=== PATIENT | male | born 2000 | race Caucasian/White ===

== ENCOUNTER 2019-02-21 00:23 | Observation (INO) | payer OTHER, SELFPAY ==
[2019-02-21 01:46] LABS: #Basophils 0.1 thou/uL (0.0-0.2); #Eosinphils 0.1 thou/uL (0.0-0.7); #Monocytes 1.3 thou/uL (0.11-0.59); #Neutrophils 11.6 thou/uL (1.40-6.50); %Basophils 0.4 % (0.0-1.0); %Eosinophils 0.6 % (0.0-10.0); %Lymphocytes 13.3 % (28.0-48.0); %Monocytes 8.8 % (0.0-4.0); %Neutrophils 76.9 % (31.0-61.0); Hemoglobin 15.6 g/dL (14.0-18.0); Mean Corpuscular HGB CONC 33.5 g/dL (32.0-36.0); Mean Corpuscular Hemoglobin 32.5 pg (25.0-35.0); Platelet Count 261 thou/uL (130-400); RBC Distribution Width 11.6 % (11.5-14.5); Red Blood Cell (RBC) Count 4.79 mill/uL (4.00-5.20)
[2019-02-21 02:02] LABS: Amphetamine Not Detected (NotDetected); Barbiturates Screen Not Detected (NotDetected); Benzodiazepine Screen Not Detected (NotDetected); Cocaine Metabolite Screen Not Detected (NotDetected); Medtox Control Line Valid? VALID (VALID); Medtox Reader # READER 4; Methadone Not Detected (NotDetected); Methamphetamine Not Detected (NotDetected); Opiate Screen Detected (NotDetected); Oxycodone Screen Not Detected (NotDetected); Phencyclidine (PCP) Not Detected (NotDetected); THC/Cannabinoid Screen Detected (NotDetected); Tricyclic Screen Not Detected (NotDetected)
[2019-02-21 02:07] LABS: Acetaminophen Less than 6.0 mcg/mL (10.0-30.0); Alcohol Less than 10 mg/dL (Less than 10); Salicylate Less than 8.0 mg/dL (15.0-30.0)
[2019-02-21 02:08] LABS: ALT (SGPT) 14 U/L (8-55); AST (SGOT) 19 U/L (5-34); Albumin 4.5 g/dL (3.5-5.0); Alkaline Phosphatase 79 U/L (Less than 750); Anion Gap 15 mmol/L (10-20); BUN (Urea Nitrogen) 18 mg/dL (8.9-20.6); Bilirubin, Total 0.5 mg/dL (0.2-1.2); Calc. Creatinine Clearance 0 mL/min (70-130); Calcium 9.7 mg/dL (7.8-10.44); Carbon Dioxide 25 mmol/L (22-29); Chloride 101 mmol/L (98-107); Estimated GFR-MDRD 71; Globulin 2.6 g/dL (2.4-3.5); Glucose 132 mg/dL (70-105); Potassium 3.6 mmol/L (3.5-5.1); Protein, Total 7.1 g/dL (6.0-8.3); Sodium 137 mmol/L (136-145)
[2019-02-21] MEDS ORDERED: Mag-Al 1200 mg/1200 mg/30 ML UDCUP ONE (02:46)
[2019-02-21] MEDS ORDERED: Lidocaine Viscous Sol 2% 15 ml UD Cup ONE (02:46)
[2019-02-21 02:54] LABS: Magnesium 2.4 mg/dL (1.7-2.2)
[2019-02-21 03:00] LABS: Bilirubin Negative (Negative); Blood, Urine Negative (Negative); Clarity CLEAR (Clear); Glucose, Urine (Dipstick) Negative (Negative); Leukocyte Negative (Negative); Nitrite Negative (Negative); Protein, Urine (Dipstick) Negative (Neg-Trace); Specific Gravity, Urine 1.014 (1.002-1.036); Urobilinogen 0.2 mg/dL (0.2-1.0)
[2019-02-21] MEDS ORDERED: Lorazepam 2 MG/ML VIAL ONE ×2 (03:14→12:08)
[2019-02-21 06:02] LABS: Troponin I 0.011 ng/mL (< 0.028)
--- NOTE | 2019-02-21 08:11 | CT ---
CTA CHEST AND ABDOMEN UTILIZING AORTIC DISSECTION PROTOCOL AND 3D REFORMATTED IMAGING: INDICATIONS: Severe chest pain, shortness of breath, hypoxia, and tachycardia. COMPARISON: None. FINDINGS: No hemodynamically significant stenosis, occlusion, or aneurysmal formation seen involving the aorta. The celiac, SMA, renal arteries, and AMINATA are widely patent. The iliac bifurcations are widely holliday nt. No definite central pulmonary embolus is evident. The heart and great vessel origins appear within n ormal limits. The lungs are clear. No pleural effusion or pneumothorax is evident. No enlarged lymph nodes are evident. No focal hepatic lesion is evident. The spleen is at the upper limits of normal for size, measuring 12.6 cm. The pancreas, adrenal glands, and kidneys are normal appearing. There are bilateral extrar enal pelves. No free fluid or enlarged lymph nodes are evident. There is a normal retrocecal appendix. No acute osseous abnormality is evident. IMPRESSION: No acute abnormality. POS: [facility]
--- NOTE | 2019-02-21 08:13 | RAD ---
SINGLE VIEW CHEST: Date: 02/21/19 COMPARISON: None. HISTORY: Chest pain. FINDINGS: Single view of the chest shows a normal sized cardiomediastinal silhouette. There is no evidence of c onsolidation, mass, or pleural effusion. The bones are unremarkable. IMPRESSION: No evidence of acute cardiopulmonary disease. POS: [facility]
[2019-02-21] MEDS ORDERED: Artificial Tears 18 DROP/0.9 ML EA EYE PRN (09:33)
[2019-02-21] MEDS ORDERED: Zolpidem Tartrate 5 MG TAB PO PRN (09:33)
[2019-02-21] MEDS ORDERED: Sodium Chloride 0.65% Nasal 44 ML BOT EA NARE PRN (09:33)
[2019-02-21] MEDS ORDERED: Acetaminophen 325 MG TAB PO PRN (09:33)
[2019-02-21] MEDS ORDERED: Eucerin (Mineral Oil/Petrolatum,White) 30 gm Jar TOP PRN (09:33)
[2019-02-21] MEDS ORDERED: Ondansetron PF 4 MG/2 ML Vial IVP PRN (09:33)
[2019-02-21] MEDS ORDERED: Ondansetron ODT 4 MG TAB PO PRN (09:33)
[2019-02-21] MEDS ORDERED: Calcium Carbonate 500 MG ChewTAB PO PRN (09:33)
[2019-02-21] MEDS ORDERED: Senokot S 8.6-50 MG TAB PO PRN (09:33)
[2019-02-21] MEDS ORDERED: Loperamide HCl 2 MG CAP PO PRN (09:33)
[2019-02-21] MEDS ORDERED: Bisacodyl 10 MG SUPP PR PRN (09:33)
[2019-02-21] MEDS ORDERED: Diabetic Tussin 200 MG/10 ML UDCUP PO PRN (09:33)
[2019-02-21] MEDS ORDERED: Lorazepam 2 MG/ML VIAL SLOW IVP PRN (09:35)
[2019-02-21] MEDS ORDERED: Lorazepam 1 MG TAB PO PRN (09:35)
--- NOTE | 2019-02-21 12:43 | SS ---
DATE OF ADMISSION: 02/21/2019 DATE OF DISCHARGE: 02/21/2019 PRIMARY CARE PHYSICIAN: [facility] Call Admission. REASON FOR ADMISSION: Chest pain. HISTORY OF PRESENT ILLNESS: A 18-year-old male, who has underlying history of anxiety disorder/panic disorder, who was brought to emergency room for chest pain. The patient was anxious and nervous when it started. The patient took [place] to get rid of pain, and subsequently, he drank vodka for fun tonight. The patient also had some fight with sister as well as other friend, and he got more anxious, and subsequently, the patient was having more substernal chest pain, and he got panicky, and he was sent to emergency room for evaluation. In the emergency room, the patient was tachypneic and tachycardic. He had a routine blood test done in the emergency room, which showed normal D-dimer and normal electrolytes. Cardiac enzymes were negative. The patient had sinus tachycardia, and that is why he was observed for few hours. While in the emergency room, he continued to be restless and anxious. This patient's living situation was not bad as per the patient's father, and the patient and father both agreed to send him to inpatient psychiatric facility. We consulted [facility] in the emergency room, and [facility] screened him, and they are also okay with sending this patient to inpatient psychiatric facility. When I saw this patient in the morning, the patient was anxious. He was having palpitation, but his sales secretary was showing sinus tachycardia. He was diaphoretic with restlessness, and that is why we started on Ativan therapy, which made him significantly improved. [facility] also screened him, and they are also considering him to inpatient psych facility. At this point, the patient does not have any chest pain. He does not have any orthopnea, PND, or leg swelling. He denies any constipation, diarrhea, melena, or hematochezia. He is medically stable. PAST MEDICAL HISTORY: Reviewed and negative. PAST PSYCHIATRIC HISTORY: Anxiety disorder/panic disorder. PAST SURGICAL HISTORY: Reviewed and negative. SOCIAL HISTORY: The patient is living at home. No history of tobacco abuse, but he drinks alcohol and abuses marijuana periodically. FAMILY HISTORY: No h/o CAD, CVA or cancer. REVIEW OF SYSTEMS: CONSTITUTIONAL: Negative for weight loss or gain, ability to conduct usual activities. SKIN: Negative for rash, itching. EYES: Negative for double vision, pain. ENT/MOUTH: Negative for nose bleeding, neck stiffness, pain, tenderness. CARDIOVASCULAR: Negative for palpitations, dyspnea on exertion, orthopnea. RESPIRATORY: Negative for shortness of breath, wheezing, cough, hemoptysis, fever or night sweats. GASTROINTESTINAL: Negative for poor appetite, abdominal pain, heartburn, nausea , vomiting, constipation, or diarrhea. GENITOURINARY: Negative for urgency, frequency, dysuria, nocturia. MUSCULOSKELETAL: Negative for pain, swelling. NEUROLOGIC/PSYCHIATRIC: Negative for anxiety, depression. ALLERGY/IMMUNOLOGIC: Negative for skin rash, bleeding tendency. See my HPI for pertinent positive and negative. All other review of systems reviewed and negative except as mentioned in HPI. ALLERGIES: NO KNOWN DRUG ALLERGIES. CURRENT HOME MEDICATIONS: The patient does not have any prescribed or non-prescribed medication with him at this point. EMERGENCY ROOM COURSE: The patient is given Ativan, IV fluid, and GI cocktail. PHYSICAL EXAMINATION: VITAL SIGNS: Currently, vital signs; blood pressure 105/56, pulse 110, respiratory rate 18, temperature 98.4, saturation 100% on room air. Weight 63.5 kg. GENERAL: The patient is currently alert, awake, anxious, in no obvious acute distress. HEENT: Head; normocephalic and atraumatic. Eyes; pupils are round and reactive to light. Extraocular muscle intact. ENT; oropharynx is within normal limits. Moist mucous membrane. No oral lesion. No pharyngeal erythema. No exudate. NECK: Supple. No JVD. No thyromegaly. No carotid bruit. No jugular venous distention. LUNGS: Clear to auscultation without any rhonchi or rales. CARDIAC: S1 and S2, regular. No murmur. No gallop. No rub. CHEST WALL: No reproducible pain. ABDOMEN: Soft and benign without any tenderness. No Jones sign. No epigastric tenderness. No suprapubic tenderness. BACK: Unremarkable. No CVA tenderness. EXTREMITIES: Upper extremities; passive movement of all joints is normal. Lower extremities; no edema. Good distal pulsation. No calf tenderness. SKIN: No skin rash. HEMATOLOGICAL SYSTEM: No lymphadenopathy. NEUROLOGIC: Nonfocal examination. SIGNIFICANT LABORATORY DATA: CBC; WBC 15.0, hemoglobin 15.6, platelet 261. D- dimer 0.27. BMP; sodium 137, potassium 3.6, chloride 101, carbon dioxide 25, BUN 18, creatinine 1.29, glucose 132, calcium 9.7, magnesium 2.4. LFT; AST 19, ALT 14, alkaline phosphatase 79, albumin 4.5. Lipase 12. TSH 0.98. Cardiac enzyme, negative. BNP less than 10. Urinalysis, normal. Urine drug screen, positive for opiate and cannabinoid. Serum drug screen, negative. CT dissection protocol, negative for dissection. Chest x-ray; negative for any acute cardiopulmonary process. EKG is showing sinus tachycardia. ASSESSMENT AND PLAN: 1. Chest pain, likely due to anxiety neurosis. His D-dimer is negative. CT dissection is negative. EKG is showing sinus tachycardia, which is related with his underlying anxious state. Cardiac enzyme already negative, and he does not need any further evaluation. His risk for coronary artery disease is extremely low. 2. Sinus tachycardia, likely due to underlying anxiety. The patient already received IV fluid in the emergency room. We will continue with lorazepam p.r.n. basis. 3. Anxiety disorder with panic disorder with underlying depression. This patient has intermittent suicidal ideation at home, and the patient's living situation is not perfectly fine. Based on the patient's father and the patient, they wanted to send him voluntarily to inpatient psychiatric facility. [facility] consulted. Once we have inpatient psychiatric facility available, then the patient will be discharged to psych facility for treatment. 4. Polysubstance abuse. The patient has alcohol and marijuana abuse. Counseling given to avoid illicit drugs. 5. Leukocytosis, likely due to stress response. 6. Deep venous thrombosis prophylaxis not needed because we are expecting discharge today. 7. Gastrointestinal prophylaxis, Pepcid 20 mg p.o. b.i.d. 8. Code status: The patient is full code. The patient does not have any surrogate decision maker. DISPOSITION PLAN: Based on [facility] recommendation. DATE OF ADMISSION: February 21, 2019, at 04:58 a.m. DATE OF DISCHARGE: February 21, 2019. DISCHARGE DISPOSITION: Inpatient psych facility. PRIMARY DISCHARGE DIAGNOSES: 1. Chest pain, likely due to anxiety neurosis. 2. Sinus tachycardia due to anxious state. 3. Leukocytosis due to stress response. SECONDARY DISCHARGE DIAGNOSES: Anxiety, depression, and panic disorder. PRIMARY PROCEDURE/OPERATION: None. RADIOLOGICAL INVESTIGATION: CT dissection, chest x-ray, and significant labs: Please see my HPI above for further detail. DISCHARGE MEDICATIONS: The patient will be discharged to inpatient psychiatric facility, and further medication will defer to Psychiatric Team. CONTRAINDICATION: None. CODE STATUS: Full code. INPATIENT PONY WORKER: NA. TEST RESULTS PENDING ON DISCHARGE: None. ALLERGIES: NO KNOWN DRUG ALLERGIES. DISCHARGE PLAN: Posthospital, the patient will follow up with psychiatrist. HOSPITAL COURSE: Please see my HPI for further details. Job ID: [id number] [id number]
[2019-02-21 15:41] LABS: #Basophils 0.1 thou/uL (0.0-0.2); #Eosinphils 0.1 thou/uL (0.0-0.7); #Lymphocytes 2.3 thou/uL (1.20-3.40); #Monocytes 0.6 thou/uL (0.11-0.59); %Basophils 0.8 % (0.0-1.0); %Eosinophils 1.5 % (0.0-10.0); %Lymphocytes 28.6 % (28.0-48.0); %Monocytes 7.8 % (0.0-4.0); %Neutrophils 61.3 % (31.0-61.0); Hemoglobin 14.9 g/dL (14.0-18.0); Mean Corpuscular HGB CONC 33.2 g/dL (32.0-36.0); Mean Corpuscular Hemoglobin 32.4 pg (25.0-35.0); Mean Corpuscular Volume 97.6 fL (78.0-98.0); Mean Platelet Volume 7.9 fL (7.4-10.4); Platelet Count 253 thou/uL (130-400); RBC Distribution Width 11.7 % (11.5-14.5); Red Blood Cell (RBC) Count 4.59 mill/uL (4.00-5.20); White Blood Cell (WBC) Count 8.2 thou/uL (4.8-10.8)
[2019-02-21] MEDS ORDERED: Lorazepam 1 MG TAB ONE (16:27)
[2019-02-21] MEDS ORDERED: Iopamidol 370 76% 100 ML VIAL ONE (17:09)
[2019-02-21] MEDS ORDERED: Famotidine 20 MG TAB PO SCH (21:00)
== END 2019-02-21 19:09 ==
LOC: ERS 00:23 → ERHOLD 04:37
PROVIDERS: ADMIT Internal Medicine; ATTEND Internal Medicine
DX: R07.9 Chest pain, unspecified (principal); R00.0 Tachycardia, unspecified; F41.9 Anxiety disorder, unspecified; F41.0 Panic disorder [episodic paroxysmal anxiety]; F32.9 Major depressive disorder, single episode, unspecified; F12.10 Cannabis abuse, uncomplicated; D72.829 Elevated white blood cell count, unspecified
CPT/HCPCS: 36415; 71045; 71275; 80053; 80306; 80307; 81003; 83690; 83735; 83880; 84443; 84484; 85025; 85379; 93005; 96361; 96374; 96376; G0378; J2060; Q9967

== ENCOUNTER 2019-07-03 02:22 | Emergency (ER) | payer OTHER ==
[2019-07-03 03:10] LABS: Acetaminophen Less than 6.0 mcg/mL (10.0-30.0); Alcohol 147 mg/dL (Less than 10); Salicylate Less than 8.0 mg/dL (15.0-30.0)
--- NOTE | 2019-07-03 09:50 | CT ---
PRELIMINARY REPORT/[facility]/EMERGENCY AFTER HOURS PROCEDURE EXAM: CT Head Without Contrast EXAM DATE/TIME: 07/03/2019 3:06 AM CLINICAL HISTORY: 19 years old, male; Altered mental status/memory loss; Patient HX: AMS. 19 y/o m presents to ED via [facility] transport from [facility] for ETOH intoxication. PT given 4 MG zofran by EMS. PT states he was not attempting to harm himself, noting that tonight was the first night he has gone out with his friends since his mother a few months ago TECHNIQUE: Imaging protocol: Computed tomography images of the head without contrast. COMPARISON: No relevant prior studies available. FINDINGS: Brain: Normal. No hemorrhage. Unremarkable white matter. No mass effect. Ventricles: Normal. No ventriculomegaly. Bones/joints: Unremarkable. No acute fracture. Sinuses: Visualized sinuses are unremarkable. No fluid levels. Mastoid air cells: Visualized mastoid air cells are well aerated. No mastoid effusion. Soft tissues: Unremarkable. IMPRESSION: No acute intracranial hemorrhage. Thank you for allowing us to participate in the care of your patient. Dictated and Authenticated by: Amrit Don MD 07/03/2019 3:42 AM Central Time ([place] & [place]) FINAL REPORT CT HEAD WITHOUT CONTRAST: HISTORY: Altered mental status. COMPARISON: None. FINDINGS: No parenchymal hemorrhage. No extraaxial hematoma. No midline shift. Brain volume is age appropria te. No hydrocephalus. Cortical freitas white matter differentiation is preserved. Intact calvarium. Adequate aeration of the sinuses and mastoid air cells. IMPRESSION: No acute intracranial process. This report is in agreement with the preliminary report by [facility]. CODE QA POS: OFF
== END 2019-07-03 04:00 | disposition home or self-care (01) ==
LOC: ERS 02:22
DX: F10.129 Alcohol abuse with intoxication, unspecified (principal); F41.9 Anxiety disorder, unspecified
CPT/HCPCS: 36415; 36416; 70450; 80307; 93005